=== PATIENT | male | born 1950 | race Two or more races ===

== ENCOUNTER 2021-02-07 12:27 | Inpatient (IN) | payer OTHER ==
[~2021-02-07] VITALS: Ht 180.3 cm; Wt 94.3 kg
[~2021-02-07 12:27] MED LIST: ASPIR 8181 MG PO; DIOVAN HCT 3201 EACH PO; INTESTINEX680 M1 PO; NORVASC5 MG PO; PEPCID AC20 MG PO; TOPROL XL100 M1 PO; TOPROL XL50 M1 PO
[2021-02-07] MEDS ORDERED: METFORMIN HCL500 MG (12:46)
[2021-02-07] MEDS ORDERED: VALSARTAN-HCTZ1 EAC3 (12:46)
--- NOTE | 2021-02-07 12:47 | NUR ---
SE RECIBE PACIENTE ALERTA Y ORIENTADO EN TIEMPO LUGAR Y PERSONA. REFIERE TENER INFLAMACION EN EL PIE DERECHO, INCLUYENDO LOS DEDOS. PACIENTE REFIERE NO TENER DOLOR AL MOMENTO. SE MARCELA SIGNOS VITALES Y SE UBICA PACIENTE EN RYLAN DE ESPERA.
--- NOTE | 2021-02-07 15:45 | NUR ---
SE REALIZA KASANDRA DE MUESTRAS A PACIENTE BAJO MEDIDAS ASEPTICAS Y DE SEGURIDAD. SE REALIZA CUIDADO DE PIEL EN PIE RT CON SOLUCION IODADA. SE ORIENTA A APCIENTE ACERCA DEL TRATAMIENTO OFRECIDO EN RYLAN DE EMERGENCIAS. SE MANTIENE PACIENTE EN RYLAN DE ESPERA PENDIENTE A RESULTADOS DE LABORATORIOS.
--- NOTE | 2021-02-07 23:53 | NUR ---
SE RECIBE PTE MASCULINO ALERTA Y ORIENTADO EN LAS JOSE MARIA ESFERAS EN COMPANIA DE FAMILIAR DEL TURNO ANTERIOR. SE OBSERVA CON BUEN PATRON RESPIRATORIO Y NO REFIERE DOLOR. VENOPUNCION PATENTE, EZEQUIEL DE EDEMA Y ERITEMA RECIBIENDO TERAPIA DE IVFS 0.9NSS BAJANDO A 80ML/HR. PTE EN FLEX NIVEL AMS BAJO CON BARANDAS ELEVADAS Y FRENOS COLOCADOS POR SEGURIDAD. PENDIENTE CONSULTA CON YA NOTIFICADA.
[2021-02-12] MEDS ORDERED: METFORMIN HCL500 M4 (15:33)
[2021-02-12] MEDS ORDERED: SILDENAFIL CITR50 MG (15:34)
[2021-02-15] MEDS ORDERED: ROLLATOR {1, null} (12:26)
[2021-02-16] MEDS ORDERED: INTESTINEX680 M1 PO (10:25)
[2021-02-16] MEDS ORDERED: AMOX-CLAV 875-1 EACH PO (10:25)
[2021-02-16] MEDS ORDERED: NEURONTIN300 MG PO (10:29)
== END 2021-02-16 12:31 | disposition home or self-care (01) | DRG 504 ==
LOC: ER 12:27 → MEDJ 02-08 02:05
PROVIDERS: Specialist; ADMIT Internal Medicine; ATTEND Internal Medicine
PROC: B54DZZZ Ultrasonography of Bilateral Lower Extremity Veins (ICD-10-PCS; 2021-02-09)
PROC: BQ3LZZZ Magnetic Resonance Imaging (MRI) of Right Foot (ICD-10-PCS; 2021-02-09)
PROC: B24BZZZ Ultrasonography of Heart with Aorta (ICD-10-PCS; 2021-02-10)
PROC: B44HZZZ Ultrasonography of Bilateral Lower Extremity Arteries (ICD-10-PCS; 2021-02-10)
PROC: 0Y6T0Z2 Detachment at Right 3rd Toe, Mid, Open Approach (ICD-10-PCS; principal; 2021-02-12 16:15)
DX: M86.8X7 Other osteomyelitis, ankle and foot (principal); I96 Gangrene, not elsewhere classified; I10 Essential (primary) hypertension; E11.9 Type 2 diabetes mellitus without complications; Z79.4 Long term (current) use of insulin; D72.828 Other elevated white blood cell count; E87.6 Hypokalemia; Z20.822 Contact with and (suspected) exposure to COVID-19; B95.61 Methicillin susceptible Staphylococcus aureus infection as the cause of diseases classified elsewhere
CPT/HCPCS: 73221

== ENCOUNTER 2021-02-23 12:44 | Outpatient (CLI) | payer OTHER ==
[~2021-02-23 12:44] MED LIST changes: +AMOX-CLAV 875-1 EACH PO; +METFORMIN HCL500 M4; +METFORMIN HCL500 MG; +NEURONTIN300 MG PO; +ROLLATOR {1, null}; +SILDENAFIL CITR50 MG; +VALSARTAN-HCTZ1 EAC3
== END 2021-02-23 13:05 | disposition home or self-care (01) ==
LOC: WOUND MED 12:44
PROVIDERS: ATTEND Specialist
DX: L97.512 Non-pressure chronic ulcer of other part of right foot with fat layer exposed (principal); R60.0 Localized edema
CPT/HCPCS: 97602; A4554; A4930; A6216; A6266

== ENCOUNTER 2021-02-26 09:43 | Outpatient (CLI) | payer OTHER | END 2021-03-03 13:02 | disposition home or self-care (01) | LOC: WOUND MED 09:43 | PROVIDERS: ATTEND Specialist | DX: L97.512 Non-pressure chronic ulcer of other part of right foot with fat layer exposed (principal); R60.0 Localized edema | CPT/HCPCS: 11042; A4554; A4930; A6216; A6219 ==

== ENCOUNTER 2021-03-02 10:12 | Outpatient (CLI) | payer OTHER | END 2021-03-03 13:02 | disposition home or self-care (01) | LOC: WOUND MED 10:12 | PROVIDERS: ATTEND Specialist | DX: L97.512 Non-pressure chronic ulcer of other part of right foot with fat layer exposed (principal); R60.0 Localized edema | CPT/HCPCS: 97602; A4554; A4930; A6216; A6219 ==

== ENCOUNTER 2021-03-05 08:13 | Outpatient (CLI) | payer OTHER | END 2021-03-05 12:57 | disposition home or self-care (01) | LOC: WOUND MED 08:13 | PROVIDERS: ATTEND Specialist | DX: L97.512 Non-pressure chronic ulcer of other part of right foot with fat layer exposed (principal); R60.0 Localized edema | CPT/HCPCS: 11042; A4554; A4930; A6216; A6219 ==

== ENCOUNTER 2021-03-09 08:13 | Outpatient (CLI) | payer OTHER | END 2021-03-09 12:01 | disposition home or self-care (01) | LOC: WOUND MED 08:13 | PROVIDERS: ATTEND Specialist | DX: L97.512 Non-pressure chronic ulcer of other part of right foot with fat layer exposed (principal); R60.0 Localized edema | CPT/HCPCS: 97602; A4554; A4930; A6216; A6266 ==

== ENCOUNTER 2021-03-20 07:59 | Outpatient (CLI) | payer OTHER | END 2021-03-20 14:31 | disposition home or self-care (01) | LOC: WOUND MED 07:59 | PROVIDERS: ATTEND Specialist | DX: L97.512 Non-pressure chronic ulcer of other part of right foot with fat layer exposed (principal); R60.0 Localized edema | CPT/HCPCS: 11042; A6219; A4930; A4554; A6216 ==

== ENCOUNTER 2021-03-23 14:42 | Outpatient (CLI) | payer OTHER | END 2021-03-23 15:45 | disposition home or self-care (01) | LOC: WOUND MED 14:42 | PROVIDERS: ATTEND Specialist | DX: L97.512 Non-pressure chronic ulcer of other part of right foot with fat layer exposed (principal); R60.0 Localized edema | CPT/HCPCS: 97602; A6219; A4930; A4554; A6216 ==

== ENCOUNTER 2021-03-27 08:30 | Outpatient (CLI) | payer OTHER | END 2021-03-27 10:00 | disposition home or self-care (01) | LOC: WOUND MED 08:30 | PROVIDERS: ATTEND Specialist | DX: L97.512 Non-pressure chronic ulcer of other part of right foot with fat layer exposed (principal); R60.0 Localized edema | CPT/HCPCS: 11042; A6219; A4930; A4554; A6216 ==

== ENCOUNTER 2021-03-30 09:09 | Outpatient (CLI) | payer OTHER | END 2021-03-30 10:00 | disposition home or self-care (01) | LOC: WOUND CARE 09:09 → WOUND MED 09:09 | PROVIDERS: ATTEND Specialist | DX: L97.512 Non-pressure chronic ulcer of other part of right foot with fat layer exposed (principal); R60.0 Localized edema | CPT/HCPCS: 97602; A6266; A4930; A4554; A6216 ==

== ENCOUNTER 2024-01-13 18:01 | Inpatient (IN) | payer OTHER ==
[~2024-01-13] VITALS: Ht 177.8 cm; Wt 85.7 kg
--- NOTE | 2024-01-13 18:25 | NUR ---
PTE ALERTA Y ORIENTADO X 3 ESFERAS AMBULANDO CON ASISTENCIA DE RU EN COMPANIA DE FAMILIAR CON REFERIDO POR CELULITIS EN DEDO DE PIE LT.SE OBSERVA FLETCHER Y CALIENTE AL TACTO.
--- NOTE | 2024-01-13 19:24 | NUR ---
PTE ALERTA Y ORIENTADO X3, SE EDUCA SOBRE TX MEDICO Y REFIERE ACEPTAR. SE CANALIZA Y COLECTAN MUESTRAS DE LAB BAJO MEDIDAS ASEPTICAS. SE HACE ENTREGA DE ENVASE PARA U/A. PENDIENTE XRAY.
[2024-01-13 19:34] LABS: HEMATOCRIT 44.4 % (39.0-48.0); HEMOGLOBIN 15.5 g/dL (13-16.00); MEAN CELL VOLUME 80.7 fL (80.0-100.00); MEAN CORPUSCULAR HEMOGLOBIN 28.2 pg (27.00-32.0); MEAN CORPUSCULAR HGB CONC 34.9 g/dl (32.0-36.0); PLATELET COUNT 306 K/uL (150-450); RED BLOOD COUNT 5.51 M/uL (4.00-6.00); RED CELL DISTRIBUTION WIDTH 15.5 % (11.5-14.5)
[2024-01-13 19:41] LABS: PH,URINE 5.5 (5.0-8.0); URINE APPEARANCE Clear; URINE BILIRRUBIN Negative (NEGATIVE); URINE BLOOD Trace; URINE COLOR Yellow; URINE KETONE 15 (NEGATIVE); URINE LEUKOCYTE Negative; URINE NITRATE Negative; URINE PROTEIN Trace (NEGATIVE); URINE UROBILINOGEN 0.2 E.U./dl
[2024-01-13 19:44] LABS: URINE BACTERIA 12.5 uL (0.0-1933); URINE EPITHELIAL CELLS 3.9 uL (0.0-38.8); URINE RBC 12.2 uL (0.0-20.8); URINE WBC 3.3 uL (0.0-23.2)
[2024-01-13 19:46] LABS: INR 1.04; PARTIAL THROMBOPLASTIN TIME 25.7 SECONDS (22.0-34.0); PROTHROMBIN TIME 11.3 SECONDS (9.0-11.5)
[2024-01-13 19:48] LABS: URINE GLUCOSE >=1000 MG/DL (NEGATIVE)
[2024-01-13 19:51] LABS: ALBUMIN 3.5 gm/dL (3.4-5.0); BILIRUBIN TOTAL 0.51 mg/dL (0.3-1.2); CALCIUM 9.7 mg/dL (8.5-10.1); CREATININE SERUM 0.92 mg/dL (0.70-1.30); GFR 80.64; GLOBULINA 4.1 G/DL (2.4-3.5); TOTAL PROTEIN 7.6 gm/dL (6.4-8.2)
[2024-01-13 19:55] LABS: POTASSIUM 2.96 mEq/L (3.5-5.1)
[2024-01-13] MEDS ORDERED: PIPERACILLIN/TAZOBACTAM SODIUM 3.375 GM VIAL IV ONE (21:30)
[2024-01-13] MEDS ORDERED: POTASSIUM BICARBONATE/CIT AC 25 MEQ TABLET.EFF PO ONE (21:45)
[2024-01-13] MEDS ORDERED: DEXTROSE 50 % IN WATER 0.5 G/ML DISP.SYRIN IV PRN (22:00)
[2024-01-13] MEDS ORDERED: INSULIN LISPRO 1,000 UNIT/10 ML UNITS SUBCUTANEO PRN (22:00)
[2024-01-13] MEDS ORDERED: 0.9 % SODIUM CHLORIDE 1,000 ML IV SCH (22:00)
[2024-01-13] MEDS ORDERED: ENALAPRILAT DIHYDRATE 1.25 MG/ML VIAL IV PRN (22:15)
[2024-01-13] MEDS ORDERED: MORPHINE SULFATE 2 MG/ML CARTRIDGE IV PRN (22:15)
[2024-01-13] MEDS ORDERED: ACETAMINOPHEN 500 MG GEL..CAP PO PRN (22:15)
[2024-01-13] MEDS ORDERED: ONDANSETRON HCL 4 MG in DEXTROSE 5 % IN WATER 50 ML IV PRN (22:15)
[2024-01-14] MEDS ORDERED: PIPERACILLIN/TAZOBACTAM SODIUM 3.375 GM in 0.9 % SODIUM CHLORIDE 100 ML IV SCH
[2024-01-14] MEDS ORDERED: POTASSIUM CHLORIDE IN WATER 100 ML IV SCH (01:00)
[2024-01-14 03:37] VITALS: BP 150/88; O2SAT 98
[2024-01-14 08:22] LABS: HEMATOCRIT 42.2 % (39.0-48.0); HEMOGLOBIN 14.1 g/dL (13-16.00); MEAN CELL VOLUME 81.6 fL (80.0-100.00); MEAN CORPUSCULAR HEMOGLOBIN 27.3 pg (27.00-32.0); MEAN CORPUSCULAR HGB CONC 33.5 g/dl (32.0-36.0); PLATELET COUNT 274 K/uL (150-450); RED BLOOD COUNT 5.17 M/uL (4.00-6.00); RED CELL DISTRIBUTION WIDTH 15.4 % (11.5-14.5)
[2024-01-14 08:52] LABS: ALBUMIN 3.2 gm/dL (3.4-5.0); BILIRUBIN TOTAL 0.55 mg/dL (0.3-1.2); BILIRUBIN,CONJUGATED 0.17 mg/dL (0.0-0.2); BILIRUBIN,UNCONJUGATED 0.38 mg/dL (0.0-0.6); CALCIUM 8.7 mg/dL (8.5-10.1); CREATININE SERUM 0.55 mg/dL (0.70-1.30); GFR 146.02; GLOBULINA 3.3 G/DL (2.4-3.5); POTASSIUM 3.3 mEq/L (3.5-5.1); TOTAL PROTEIN 6.5 gm/dL (6.4-8.2)
[2024-01-14 08:55] LABS: C-REACTIVE PROTEIN 8.77 MG/DL (0.00-0.29)
[2024-01-14] MEDS ORDERED: METOPROLOL TARTRATE 100 MG TABLET PO SCH (09:00)
[2024-01-14] MEDS ORDERED: FAMOTIDINE/PF 20 MG in 0.9 % SODIUM CHLORIDE 8 ML IV PUSH SCH (09:00)
[2024-01-14] MEDS ORDERED: ENOXAPARIN SODIUM 40 MG/0.4 ML SYRINGE SUBCUTANEO SCH (09:00)
[2024-01-14] MEDS ORDERED: PATIENTS OWN MEDICATION (MEDICAMENTO EN PISO) PO SCH ×2 (09:00→17:00)
[2024-01-14] MEDS ORDERED: ASPIRIN 81 MG TABLET.EC PO SCH (09:00)
[2024-01-14] MEDS ORDERED: AMLODIPINE BESYLATE 10 MG TABLET PO SCH (09:00)
[2024-01-14 09:10] LABS: ERYTHROCYTE SEDIMENTATION RATE 35 mm/hr
[2024-01-14 09:41] VITALS: BP 144/73
[2024-01-14 15:30] LABS: INR 1.05; PARTIAL THROMBOPLASTIN TIME 27.1 SECONDS (22.0-34.0); PROTHROMBIN TIME 11.4 SECONDS (9.0-11.5)
[2024-01-14 16:49] VITALS: BP 128/71
[2024-01-15 03:26] VITALS: BP 129/73; O2SAT 97
[2024-01-15 08:20] LABS: URINE APPEARANCE Clear; URINE BILIRRUBIN Negative (NEGATIVE); URINE BLOOD Negative; URINE COLOR Yellow; URINE KETONE Trace (NEGATIVE); URINE LEUKOCYTE Negative; URINE NITRATE Negative; URINE PROTEIN Trace (NEGATIVE); URINE UROBILINOGEN 0.2 E.U./dl
[2024-01-15 08:24] LABS: URINE EPITHELIAL CELLS 1.6 uL (0.0-38.8); URINE RBC 13.1 uL (0.0-20.8); URINE WBC 2.1 uL (0.0-23.2)
[2024-01-15 09:05] VITALS: BP 133/77
[2024-01-15 09:59] LABS: URINE BACTERIA 1.2 uL (0.0-1933); URINE GLUCOSE >=1000 MG/DL (NEGATIVE)
[2024-01-15 16:24] VITALS: O2SAT 79
[2024-01-15 17:00] VITALS: BP 144/68
[2024-01-16 02:39] VITALS: BP 140/78; O2SAT 94
[2024-01-16] MEDS ORDERED: POTASSIUM CHLORIDE 10 MEQ CAPSULE PO NR (13:00)
[2024-01-16 18:38] VITALS: BP 120/67; O2SAT 96
[2024-01-17 00:09] LABS: CREATININE SERUM 0.7 mg/dL (0.70-1.30); GFR 110.54; POTASSIUM 3.15 mEq/L (3.5-5.1)
[2024-01-17 02:06] VITALS: BP 122/74; O2SAT 96
[2024-01-17] MEDS ORDERED: POTASSIUM CHLORIDE 10 MEQ CAPSULE PO SCH (09:00)
[2024-01-17 09:24] VITALS: BP 148/78; O2SAT 97
[2024-01-17 16:40] VITALS: BP 149/77; O2SAT 95
[2024-01-17] MEDS ORDERED: PIPERACILLIN/TAZOBACTAM SODIUM 3.375 GM VIAL IV SCH (17:00)
[2024-01-18 01:25] VITALS: BP 136/83; BP 150/80; O2SAT 95; O2SAT 96
[2024-01-18 07:08] LABS: CREATININE SERUM 0.71 mg/dL (0.70-1.30); GFR 108.75; MAGNESIUM 2.4 mg/dL (1.8-2.4); POTASSIUM 3.46 mEq/L (3.5-5.1)
[2024-01-18 08:58] VITALS: BP 151/84
[2024-01-18] MEDS ORDERED: POTASSIUM CHLORIDE 10 MEQ CAPSULE PO SCH (09:00)
[2024-01-18 17:03] VITALS: BP 123/70; O2SAT 96
[2024-01-19 02:37] VITALS: BP 126/70; O2SAT 96
[2024-01-19 08:32] VITALS: BP 143/76; O2SAT 94
[2024-01-19 18:12] VITALS: BP 136/78; O2SAT 97
[2024-01-20 02:33] VITALS: BP 123/71; O2SAT 96
[2024-01-20 08:03] VITALS: BP 131/79; O2SAT 97
== END 2024-01-20 13:32 | disposition home or self-care (01) | DRG 624 ==
LOC: ER 18:03 → MEDI 22:42
PROVIDERS: Emergency Medicine; General Practice; ADMIT Internal Medicine; ATTEND Internal Medicine
PROC: 0JBR0ZZ Excision of Left Foot Subcutaneous Tissue and Fascia, Open Approach (ICD-10-PCS; principal; 2024-01-14)
PROC: 4A12X4Z Monitoring of Cardiac Electrical Activity, External Approach (ICD-10-PCS; 2024-01-14)
PROC: BQ3FZZZ Magnetic Resonance Imaging (MRI) of Left Lower Leg (ICD-10-PCS; 2024-01-14)
PROC: B44GZZZ Ultrasonography of Left Lower Extremity Arteries (ICD-10-PCS; 2024-01-14)
PROC: 0JDR0ZZ Extraction of Left Foot Subcutaneous Tissue and Fascia, Open Approach (ICD-10-PCS; 2024-01-18)
DX: E11.621 Type 2 diabetes mellitus with foot ulcer (principal); E11.628 Type 2 diabetes mellitus with other skin complications; L97.529 Non-pressure chronic ulcer of other part of left foot with unspecified severity; L03.032 Cellulitis of left toe; B96.4 Proteus (mirabilis) (morganii) as the cause of diseases classified elsewhere; B95.61 Methicillin susceptible Staphylococcus aureus infection as the cause of diseases classified elsewhere; B96.89 Other specified bacterial agents as the cause of diseases classified elsewhere; Z79.4 Long term (current) use of insulin; I10 Essential (primary) hypertension

== ENCOUNTER 2024-01-27 12:43 | Outpatient (CLI) | payer OTHER | END 2024-01-27 13:00 | disposition home or self-care (01) | LOC: WOUND MED 12:43 | PROVIDERS: ATTEND Specialist | DX: E11.621 Type 2 diabetes mellitus with foot ulcer (principal); L97.522 Non-pressure chronic ulcer of other part of left foot with fat layer exposed; Z79.4 Long term (current) use of insulin; I10 Essential (primary) hypertension | CPT/HCPCS: 97602; A4927; A6219; A6223 ==